=== PATIENT | male | born 1990 | race Caucasian/White ===

== ENCOUNTER 2025-01-08 19:48 | Emergency (ER) | payer BC ==
[~2025-01-08] VITALS: Ht 175.3 cm; Wt 86.5 kg
[2025-01-08] MEDS: TETanus/Pertussis (Acell)/Diphther VAC/PF (Tdap-Adult) 0.5ml syringe IMVAC ONE (20:25)
[2025-01-08 20:28] VITALS: BP 110/60; PULSE 70; RESP 16; TEMP 97.7; O2SAT 98
== END 2025-01-08 20:31 | disposition home or self-care (01) ==
LOC: ER 19:49
DX: S61.411A Laceration without foreign body of right hand, initial encounter (principal); W26.9XXA Contact with unspecified sharp object(s), initial encounter; Y93.89 Activity, other specified; Y92.89 Other specified places as the place of occurrence of the external cause; Y99.8 Other external cause status
CPT/HCPCS: 90471; 90715; 99283; A6449

== ENCOUNTER 2025-02-03 18:48 | Emergency (ER) | payer BC ==
[~2025-02-03] VITALS: Ht 175.3 cm; Wt 85.9 kg
[2025-02-03 21:17] VITALS: BP 116/71; PULSE 100; RESP 16; TEMP 98.1; O2SAT 100
== END 2025-02-03 21:54 | disposition home or self-care (01) ==
LOC: ER 18:48
DX: S09.90XA Unspecified injury of head, initial encounter (principal); R55 Syncope and collapse; W19.XXXA Unspecified fall, initial encounter; Y93.89 Activity, other specified; Y92.89 Other specified places as the place of occurrence of the external cause; Y99.8 Other external cause status
CPT/HCPCS: 70450; 82948; 93005; 99284